=== PATIENT | male | born 1950 | race Caucasian/White ===

== ENCOUNTER 2022-06-05 14:49 | Outpatient (CLI) | payer MEDICARE, SELFPAY | END 2022-06-05 14:50 | disposition home or self-care (01) | PROVIDERS: Visit Provider Emergency Medicine Emergency Medical Services | DX: G40.909 Epilepsy, unspecified, not intractable, without status epilepticus (principal); R41.82 Altered mental status, unspecified | CPT/HCPCS: A0425; A0427 ==